=== PATIENT | female | born 1985 | race American Indian/Alaskan Native ===

== ENCOUNTER 2019-01-06 02:45 | Emergency (ER) | payer OTHER, MEDICAID, SELFPAY ==
[2019-01-06 02:49] VITALS: BP 118/95; PULSE 67; RESP 20; TEMP 36.4; O2SAT 97; BMI 48.5
[2019-01-06 03:28] VITALS: PULSE 67; RESP 20; TEMP 36.4; O2SAT 97
[2019-01-06 04:01] LABS: RBC Urine None Seen (0-5/HPF)
[2019-01-06 04:09] LABS: Add Manual Diff / Slide Review NO; Basophils Absolute Auto 0 /uL (0-100); Basophils Percent Auto 0.6 % (0-2); Eosinophils Absolute Auto 200 /uL (0-450); Eosinophils Percent Auto 2.3 % (2-4); Hematocrit 38.3 % (36-46); Hemoglobin 13.3 g/dL (12.0-16.0); Lymphocytes Absolute Auto 1600 /uL (1100-4500); Lymphocytes Percent Auto 22.1 % (25-40); Mean Corpuscular HGB Conc 34.6 % (30-36); Mean Corpuscular Hemoglobin 29.5 PG (26-34); Mean Corpuscular Volume 85.2 fL (80-100); Monocytes Absolute Auto 400 /uL (0-900); Monocytes Percent Auto 4.8 % (3-14); Neutrophils Absolute Auto 5200 /uL (1500-7000); Neutrophils Percent Auto 70.2 % (50-75); Platelet Count 234 X10^3/uL (150-400); Red Cell Distribution Width 12.8 % (11.6-14.8); White Blood Cell Count 7.5 X10^3/uL (4.5-11.0)
[2019-01-06 04:12] LABS: Prothrombin Time 11.1 SECONDS (10.1-12.7)
[2019-01-06 04:14] LABS: PTT Partial Thromboplastin Tim 34 SECONDS (26.4-36.2)
[2019-01-06 04:15] LABS: Bacteria Urine Few (2-10); Culture Indicated Urine Cult Not Indicated; Ictotest Urine Negative (Negative); Squamous Epithelial Cell Urine 5-10 /HPF (0-5/HPF); WBC Urine 1-5/HPF (0-5/HPF)
--- NOTE | 2019-01-06 04:15 | ED.ABDPAIN ---
HPI - Abdominal Pain General Chief Complaint: Abdominal Pain Stated Complaint: Upper abdominal pain/Back pain Time Seen by Provider: 01/06/19 03:40 Source: patient Mode of arrival: Ambulatory Limitations: no limitations History of Present Illness HPI narrative: This is a 33-year-old female comes in with complaint of upper abdominal pain that radiates towards her back. Patient states it only seems to happen when she is asleep and wakes her up from sleep. Sort of epigastric comes towards the back. Patient states that she has not any fevers. She did have nausea vomiting tonight. With other episodes she has not. She has had a couple episodes over the last several weeks. She has not had any changes with bowel movements. She has not had any frequency urgency or dysuria. No issues with vaginal discharge or bleeding. She has not had any fevers. No chest pain or shortness of breath. She is 4 months , she is breast feeding. She denies any other medical issues. No prior surgeries. No tobacco, denies alcohol, occasional marijuana. Related Data Previous Rx's Medication Instructions Recorded nitrofurantoin monohyd/m-cryst 100 mg PO BID #10 cap 04/17/17 [Macrobid] Allergies Allergy/AdvReac Type Severity Reaction Status Date / Time diazepam [From VALIUM] AdvReac Unknown ITCHY Unverified 07/06/17 12:54 Review of Systems Review of Systems ROS Unobtainable: All systems reviewed & are unremarkable except as noted in HPI and below PFSH Social History Smoking Status: Former smoker Social History (Updated 01/06/19 @ 04:40 by Jill Angel DO) Smoking Status: Former smoker substance use type: marijuana Exam Narrative Exam Narrative: GENERAL: Alert and oriented x three, obese, well-appearing female in no acute distress. Patient was initially breast-feeding in the room. HEENT: Head normocephalic, atraumatic, EOMI, pupils reactive, face symmetric, moist mucous membranes NECK: Supple, full range of motion CARDIOVASCULAR: Regular rate and rhythm without murmurs, rubs or gallops. RESPIRATORY: Breath sounds equal bilaterally, no wheezes rales or rhonchi. ABDOMEN: Soft, nontender. Normoactive bowel sounds all 4 quadrants. No guarding or rebound, rigidity, no mass : No CVA tenderness EXTREMITIES: Normal range of motion, no clubbing or edema. Neurovascularly intact NEUROLOGICAL: Cranial nerves II through XII grossly intact. Moving all extremities SKIN: Warm, dry, no petechiae, no rashes or lesions. Initial Vital Signs Initial Vital Signs: Vital Signs Temperature 97.6 F 01/06/19 02:49 Pulse Rate 67 01/06/19 02:49 Respiratory Rate 20 01/06/19 02:49 Blood Pressure 118/95 H 01/06/19 02:49 Pulse Oximetry 97 01/06/19 02:49 Course Orders Ordered: ED Orders 01/06/19 03:15 Ictotest Urine Stat Urine Microscopic Stat 01/06/19 04:00 Complete Blood Count AUTO DIFF Stat Comprehensive Metabolic Panel Stat Lipase Stat Partial Thromboplastin Time Stat Prothrombin Time INR Stat 01/06/19 04:28 US abdomen complete Stat Vital Signs Vital signs: Vital Signs - 8 hr 01/06/19 02:49 01/06/19 03:28 01/06/19 05:24 Temperature 97.6 F 97.6 F Pulse Rate 67 67 63 Respiratory Rate 20 20 16 Blood Pressure 118/95 H 119/84 Pulse Oximetry 97 97 97 MDM - Abdominal Pain Lab Data Attestation: I reviewed the patient's lab results. Result diagrams: 01/06/19 04:00 01/06/19 04:00 Labs: Lab Results 01/06/19 01/06/19 01/06/19 Range/Units 03:15 04:00 04:00 WBC 7.5 (4.5-11.0) X10^3/uL RBC 4.50 (4.0-5.2) X10^6/uL Hgb 13.3 (12.0-16.0) g/dL Hct 38.3 (36-46) % MCV 85.2 (80-100) fL MCH 29.5 (26-34) PG MCHC 34.6 (30-36) % RDW 12.8 (11.6-14.8) % Plt Count 234 (150-400) X10^3/uL Neut % (Auto) 70.2 (50-75) % Lymph % (Auto) 22.1 L (25-40) % [place] % (Auto) 4.8 (3-14) % Eos % (Auto) 2.3 (2-4) % Baso % (Auto) 0.6 (0-2) % Neut # (Auto) 5200 (9291-1905) /uL Lymph # (Auto) 1600 (7966-0973) /uL [place] # (Auto) 400 (0-900) /uL Eos # (Auto) 200 (0-450) /uL Baso # (Auto) 0 (0-100) /uL PT 11.1 (10.1-12.7) SECONDS INR 1.0 (0.9-1.3) APTT 34 (26.4-36.2) SECONDS Sodium (137-145) mmol/L Potassium (3.4-5.1) mmol/L Chloride (98-107) mmol/L Carbon Dioxide (22-32) mmol/L BUN (7-17) mg/dL Creatinine (0.52-1.04) mg/dL Estimated GFR (>60) mL/min BUN/Creatinine Ratio (6-22) Glucose (70-100) mg/dL Calcium (8.4-10.2) mg/dL Total Bilirubin (0.2-1.3) mg/dL AST (14-36) IU/L ALT (9-52) IU/L Alkaline Phosphatase (38-126) U/L Total Protein (6.3-8.2) g/dL Albumin (3.5-5.0) g/dL Globulin (1.7-4.1) g/dL Albumin/Globulin Ratio (1.0-2.8) Lipase (23-300) U/L Urine Ictotest Negative (Negative) Urine RBC None seen (0-5/HPF) Urine WBC 1-5/hpf (0-5/HPF) Ur Squamous Epith Cells 5-10 /hpf H (0-5/HPF) Urine Bacteria Few (2-10) H (None) Ur Culture Indicated? Cult not indicated 01/06/19 Range/Units 04:00 WBC (4.5-11.0) X10^3/uL RBC (4.0-5.2) X10^6/uL Hgb (12.0-16.0) g/dL Hct (36-46) % MCV (80-100) fL MCH (26-34) PG MCHC (30-36) % RDW (11.6-14.8) % Plt Count (150-400) X10^3/uL Neut % (Auto) (50-75) % Lymph % (Auto) (25-40) % [place] % (Auto) (3-14) % Eos % (Auto) (2-4) % Baso % (Auto) (0-2) % Neut # (Auto) (5871-9215) /uL Lymph # (Auto) (9639-6549) /uL [place] # (Auto) (0-900) /uL Eos # (Auto) (0-450) /uL Baso # (Auto) (0-100) /uL PT (10.1-12.7) SECONDS INR (0.9-1.3) APTT (26.4-36.2) SECONDS Sodium 140 (137-145) mmol/L Potassium 4.2 (3.4-5.1) mmol/L Chloride 102 (98-107) mmol/L Carbon Dioxide 31 (22-32) mmol/L BUN 16 (7-17) mg/dL Creatinine 0.60 (0.52-1.04) mg/dL Estimated GFR > 60.0 (>60) mL/min BUN/Creatinine Ratio 26.7 H (6-22) Glucose 112 H (70-100) mg/dL Calcium 8.6 (8.4-10.2) mg/dL Total Bilirubin 0.3 (0.2-1.3) mg/dL AST 31 (14-36) IU/L ALT 25 (9-52) IU/L Alkaline Phosphatase 108 (38-126) U/L Total Protein 7.3 (6.3-8.2) g/dL Albumin 4.2 (3.5-5.0) g/dL Globulin 3.1 (1.7-4.1) g/dL Albumin/Globulin Ratio 1.4 (1.0-2.8) Lipase 108 (23-300) U/L Urine Ictotest (Negative) Urine RBC (0-5/HPF) Urine WBC (0-5/HPF) Ur Squamous Epith Cells (0-5/HPF) Urine Bacteria (None) Ur Culture Indicated? Point of care testing: Point of Care Testing Test Results Negative Urine Dip Bedside Urine Glucose Negative Bedside Urine Bilirubin + 1 Bedside Urine Ketone +/- 5 Urine Specific Fonda 1.025 Bedside Urine Occult Blood - Negative Bedside Urine pH 5.5 Bedside Urine Protein +/- 15 Bedside Urine Urobilinogen 1+ 2mg Bedside Urine Nitrite - Negative Bedside Urine Leukocytes +/- 15 Esterase Imaging Data US - abdomen: Radiologist's impression: prelim-gallstones, no obstructing stones. no CBD duct dilation, no thickening. MDM Narrative Medical decision making narrative: Patient has gallstones, she is not currently in pain, no infectious changes. Lab work has a normal range. Urine has some leukocyte esterase but appears to also have squamous. Pain is epigastric and do not feel that her urine is likely source. Discussed with patient probably the gallstones are the cause of her pain. It is intermittent and resolved at this point. Give her referral for General surgery if she would like to talk to them about possible removal. Also discussed signs and symptoms to watch for reasons to return. Discharge Plan Departure Patient Disposition: Home Clinical Impression: Abdominal pain, Cholelithiasis Discharge Date/Time: 01/06/19 05:24 Instructions: DI for Abdominal Pain-Adult Activity Restrictions/Additional Instructions: Follow-up with primary care in the next week for recheck. May also follow up with General surgery, her ultrasound shows gallstones this could be causing your pain and you may benefit from having your gallbladder removed at some point. You may take ibuprofen and/or Tylenol as needed for pain you may take ibuprofen up to 800 mg every 8 hours or Tylenol up to a 1000 mg every 8 hours as needed. These medications are appropriate while breast feeding. Return to the emergency department for fevers greater than 100.4 F, rapidly worsening abdominal pain, persistent vomiting, black or bloody stools, passing out or other new or concerning symptoms. Prescriptions: No Action nitrofurantoin monohyd/m-cryst [Macrobid] 100 MG capsule 100 mg PO BID Qty: 10 RF: 0 Referrals: Bryson Stafford MD [Physician] -
[2019-01-06 04:16] LABS: Alanine Aminotransferase 25 IU/L (9-52); Albumin 4.2 g/dL (3.5-5.0); Albumin Globulin Ratio 1.4 (1.0-2.8); Alkaline Phosphatase 108 U/L (38-126); Aspartate Aminotransferase 31 IU/L (14-36); BUN Creatinine Ratio 26.7 (6-22); Bilirubin Total 0.3 mg/dL (0.2-1.3); Blood Urea Nitrogen 16 mg/dL (7-17); Calcium 8.6 mg/dL (8.4-10.2); Carbon Dioxide 31 mmol/L (22-32); Chloride 102 mmol/L (98-107); Estimated Glomerular Filt Rate > 60.0 mL/min (>60); Globulin 3.1 g/dL (1.7-4.1); Glucose 112 mg/dL (70-100); HEMOLYSIS < 15 (0-50); Lipase 108 U/L (23-300); Potassium 4.2 mmol/L (3.4-5.1); Sodium 140 mmol/L (137-145); Total Protein 7.3 g/dL (6.3-8.2)
--- NOTE | 2019-01-06 04:28 | DI.US.S_ITS ---
PROCEDURE: US ABDOMEN COMPLETE INDICATIONS: PAIN 6 WEEKS POST TECHNIQUE: Real-time scanning was performed of the abdominal and retroperitoneal organs, with image documentation. COMPARISON: [facility], US, ABDOMEN COMPLETE, 07/18/2007, 10:34. [facility], CT, KIDNEY/ URETER/BLADDER, 11/17/2007, 13:14. FINDINGS: Liver: The liver demonstrates normal size. The liver demonstrates generalized mildly increased echogenicity. This decreases ultrasound sensitivity for detection of hepatic masses. Gallbladder: Numerous mobile gallstones are seen, measuring approximately 5 mm. The gallbladder wall is not thickened, measuring 3 mm or less. No specific pericholecystic fluid is seen. The sonographic Chase sign is negative. Biliary ducts: Intrahepatic bile ducts are non-dilated. Extrahepatic bile duct caliber measures 8 mm. Normal is 6-7 mm or less in diameter, or 10 mm or less post-cholecystectomy. Pancreas: Visualized portions of the pancreas are sonographically normal. Spleen: Spleen is mildly enlarged measuring 13.2 cm. Kidneys: Kidneys are normal in size and echotexture. Right kidney measures 11.5 cm long; left kidney measures 12 cm long. No hydronephrosis or nephrolithiasis. No solid masses. Aorta: Visualized aorta is normal in caliber at less than 3 cm. Iliacs: Not seen, obscured by overlying bowel gas. IVC: Intrahepatic inferior vena cava is patent. Miscellaneous: No free abdominal fluid. IMPRESSION: Mobile gallstones are seen, without additional sonographic signs of ascites. Mild biliary dilatation is seen, the common bile duct measuring up to 8 mm. As clinically appropriate, an MRCP could be considered for further evaluation (assuming that there is no contraindication to MRI). The liver demonstrates mildly increased echogenicity. This finding is nonspecific, yet it is most commonly attributed to fatty infiltration. Mild splenomegaly. Note: No significant discrepancy from the preliminary report. Dictated by: Robe Ga M.D. on 01/06/2019 at 6:55 Approved by: Robe Ga M.D. on 01/06/2019 at 6:58
[2019-01-06 05:24] VITALS: BP 119/84; PULSE 63; RESP 16; O2SAT 97
== END 2019-01-06 05:24 | disposition home or self-care (01) ==
PROVIDERS: Emergency Provider Emergency Medicine
DX: R10.9 Unspecified abdominal pain (principal); K80.20 Calculus of gallbladder without cholecystitis without obstruction
CPT/HCPCS: 36415; 76700; 80053; 81003; 81015; 81025; 83690; 85025; 85610; 85730; 99282; 99284

== ENCOUNTER 2019-10-04 10:14 | Observation (INO) | payer OTHER, MEDICAID, SELFPAY ==
[2019-10-04] VITALS (17 sets, daily range): BP systolic 114–168; BP diastolic 69–90; PULSE 55–71; RESP 11–24; TEMP 36.1–36.5; O2SAT 95–100; BMI 48.0
--- NOTE | 2019-10-04 | PATH_ITS ---
[facility] Accession Number: [id number] . 01 Material submitted: . gallbladder - GALLBLADDER AND CONTENTS . 02 Diagnosis: Gallbladder and Contents, Cholecystectomy: Chronic cholecytitis with cholelithiasis. Negative for dysplasia and malignancy. [facility] 10/08/2019 1329 Local . 02 Electronically signed: . Renetta Corona MD, Pathologist NPI- [id number] . 01 Gross description: . Received in formalin, labeled with patient identification and gallbladder / contents, and consists of an intact gallbladder measuring 7.3 cm in length and 3.0 cm in diameter. The staple at the cystic duct margin is removed, and the tissue underneath is inked blue. The cystic duct is 0.4 cm in diameter. The serosa is pink-guan and dull. The hepatic surface is yellow-guan, shaggy, and focally cauterized. Opening the specimen reveals yellow-guan with green tinted, velvety mucosa and multiple yellow-guan and irregular shaped calculi measuring 6.5 x 5.5 x 0.6 cm in aggregate. The serosa is pink-guan and dull with focally white-guan exudate. Multiple calculi are present at the neck area. The wall thickness is up to 0.3 cm. There is a 0.7 x 0.5 x 0.3 cm lymph node candidate. [employer] sections are submitted in three cassettes. . SUMMARY OF SECTIONS: . A1 - cystic duct margin, shave, one piece. A2 - product representative sections of gallbladder, three pieces. A3 - one intact lymph node candidate, one piece. ([id number]) /LISA 10/08/2019 1421 Local . 02 Pathologist provided ICD-10: K80.60 . 02 CPT . 593401 Performed at: [address] [facility] [address] [place] [address], [place], [place] [id number] MD Richard Saravia MD Phone: [phone] Performed at: 02 [facility] [place] [address] [address] [place], [place] [id number] MD Renetta Corona MD Phone: [phone]
--- NOTE | 2019-10-04 | DI.RAD.S_ITS ---
PROCEDURE: XR CHOLANGIOGRAM OPERATIVE INDICATIONS: CHOLANGIOGRAM COMPARISON: None. FINDINGS: Biliary ducts: The surgeon injected contrast into the biliary ducts after cannulation of the cystic duct stump. Visualized intra- and extrahepatic bile ducts are normal in caliber, without strictures. No intraluminal filling defects to suggest retained ductal stones or sludge. No evidence for iatrogenic ductal injury. Duodenum: Contrast flows promptly through the sphincter of Oddi into the duodenum, which appears normal in caliber. IMPRESSION: Intraoperative cholangiogram shows post cholecystectomy changes and patent common bile duct. Dictated by: Scott Jc M.D. on 10/04/2019 at 21:11 Approved by: Scott Jc M.D. on 10/04/2019 at 21:11
--- NOTE | 2019-10-04 10:25 | DI.US.S_ITS ---
PROCEDURE: US ABDOMEN LIMITED INDICATIONS: SEVERE EPIGASTRIC PAIN, HISTORY OF GALLSTONES TECHNIQUE: Real-time focused scanning was performed of the abdomen, with image documentation. COMPARISON: [facility], US, US ABDOMEN COMPLETE, 01/06/2019, 5:02. FINDINGS: The liver is normal in size and homogeneous in echotexture except for mild to moderate fatty infiltration throughout the liver. The gallbladder contains numerous small internal stones which currently do not appear obstructed. The gallbladder wall is normal in thickness at 1.7 mm. Note is made of prominence of the bile duct at the pancreatic level, an 8 mm. The pancreas itself could not be seen due to bowel gas. IMPRESSION: Multiple small stones are present within the gallbladder lumen and the common duct is mildly dilated at 8 mm to the degree that a distal common duct stone could be present. Depending on clinical status followup by MR cholangiography may become necessary. Dictated by: Gerardo Bauer M.D. on 10/04/2019 at 11:53 Approved by: Gerardo Bauer M.D. on 10/04/2019 at 11:56
[2019-10-04] MEDS: SODIUM CHLORIDE 0.9% 1,000 ML 1000 ML IV (10:33)
[2019-10-04] MEDS: PANTOPRAZOLE 40 MG VIAL IV (10:33)
[2019-10-04 10:58] LABS: Add Manual Diff / Slide Review NO; Basophils Absolute Auto 100 /uL (0-100); Basophils Percent Auto 0.7 % (0-2); Eosinophils Absolute Auto 100 /uL (0-450); Eosinophils Percent Auto 1.5 % (2-4); Hematocrit 40.5 % (36-46); Hemoglobin 13.9 g/dL (12.0-16.0); Lymphocytes Absolute Auto 1900 /uL (1100-4500); Lymphocytes Percent Auto 19.1 % (25-40); Mean Corpuscular HGB Conc 34.3 % (30-36); Mean Corpuscular Hemoglobin 28.5 PG (26-34); Mean Corpuscular Volume 83.2 fL (80-100); Monocytes Absolute Auto 500 /uL (0-900); Monocytes Percent Auto 4.8 % (3-14); Neutrophils Absolute Auto 7300 /uL (1500-7000); Neutrophils Percent Auto 73.9 % (50-75); Platelet Count 296 X10^3/uL (150-400); Red Blood Cell Count 4.87 X10^6/uL (4.0-5.2); Red Cell Distribution Width 13.8 % (11.6-14.8); White Blood Cell Count 9.9 X10^3/uL (4.5-11.0)
[2019-10-04 11:08] LABS: Appearance Urine UA CLEAR; Bilirubin Urine UA 1+ (NEGATIVE); Color Urine UA YELLOW; Glucose Urine UA NEGATIVE (Negative); Ketones Urine UA NEGATIVE (NEGATIVE); Leukocyte Esterase Urine UA NEGATIVE (NEGATIVE); Nitrite Urine UA NEGATIVE (Negative); Occult Blood Urine UA TRACE-LYSED (Negative); Protein Urine UA TRACE (Negative); Specific Gravity Urine UA >=1.030 (1.000-1.035)
[2019-10-04 11:13] LABS: Alanine Aminotransferase 32 IU/L (<35); Albumin 4.6 g/dL (3.5-5.0); Albumin Globulin Ratio 1.4 (1.0-2.8); Alkaline Phosphatase 144 U/L (38-126); Aspartate Aminotransferase 76 IU/L (14-36); Bilirubin Total 1.2 mg/dL (0.2-1.3); Blood Urea Nitrogen 13 mg/dL (7-17); Calcium 9.3 mg/dL (8.4-10.2); Carbon Dioxide 25 mmol/L (22-32); Chloride 106 mmol/L (98-107); Estimated Glomerular Filt Rate > 60.0 mL/min (>60); Globulin 3.2 g/dL (1.7-4.1); Glucose 138 mg/dL (70-100); HEMOLYSIS < 15 (0-50); Lipase 122 U/L (23-300); Potassium 3.9 mmol/L (3.4-5.1); Sodium 139 mmol/L (137-145); Total Protein 7.8 g/dL (6.3-8.2)
[2019-10-04 11:29] LABS: Bacteria Urine Moderate (10-30); Culture Indicated Urine Cult Not Indicated; Ictotest Urine Positive (Negative); Mucus Urine 1+ (Negative); RBC Urine 1-5/HPF (0-5/HPF); Squamous Epithelial Cell Urine 5-10 /HPF (0-5/HPF); WBC Urine 0-1/HPF (0-5/HPF)
--- NOTE | 2019-10-04 11:51 | ED.ABDPAIN ---
HPI - Abdominal Pain <Jerel Henao DO - Last Filed: 10/04/19 12:34> General Source: patient Mode of arrival: Ambulatory Limitations: no limitations History of Present Illness HPI narrative: 33F former smoker with known history of gallstones presents with a day and a half of severe epigastric pain, nausea and decreased appetite. She states that her pain is worse with motion and it is unclear if it is made worse by eating because she has not eaten since last night. She denies any fever or chills. She denies any change in bowel or bladder habits. MD complaint: abdominal pain Onset (ago): day(s) Pain Consistency: constant Location: epigastric Severity: moderate Quality: cramping and aching Radiation: none Relieving factors: nothing Associated symptoms: nausea Related Data Previous Rx's Medication Instructions Recorded nitrofurantoin monohyd/m-cryst 100 mg PO BID #10 cap 04/17/17 [Macrobid] Allergies Allergy/AdvReac Type Severity Reaction Status Date / Time diazepam [From VALIUM] AdvReac Unknown ITCHY Verified 10/04/19 12:22 Review of Systems <Jerelmalathi Henao DO - Last Filed: 10/04/19 12:34> Constitutional Constitutional: Denies chills, Denies fatigue, Denies fever(s), Denies frequent falls, Denies lethargy and Denies weakness Eyes Eyes: Denies change in vision, Denies eye discharge, Denies irritation and Denies loss of vision ENT Ears, Nose, Mouth, and Throat: Denies change in voice, Denies dizziness, Denies neck pain, Denies sore throat and Denies throat swelling Cardiovascular Cardiovascular: Denies chest pain, Denies irregular heart rhythm, Denies lightheadedness, Denies palpitations, Denies dyspnea, Denies dyspnea on exertion and Denies orthopnea Respiratory Respiratory: Denies cough, Denies dyspnea, Denies dyspnea on exertion and Denies wheezing Gastrointestinal Gastrointestinal: Reports abdominal pain, Denies change in bowel habits, Denies diarrhea, Reports nausea and Denies vomiting Musculoskeletal Musculoskeletal: Denies neck pain and Denies numbness Integumentary/Breasts Skin/Breast: Denies pruritus, Denies erythema, Denies rash and Denies wounds Neurologic Neurologic: Denies behavioral changes, Denies confusion, Denies dizziness, Denies frequent falls, Denies loss of vision, Denies numbness and Denies weakness Psychiatric Psychiatric: Denies anxiety, Denies behavioral changes, Denies confusion, Denies depression, Denies homicidal ideation and Denies suicidal ideation Endocrine Endocrine: Denies fatigue, Denies flushing and Denies palpitations Hematologic/Lymphatic Hematologic/Lymphatic: Denies easy bruising Allergic/Immunologic Allergic/Immunologic: Denies urticaria, Denies throat swelling and Denies wheezing Patient History <Jerel Henao DO - Last Filed: 10/04/19 12:34> Social History Smoking Status: Former smoker substance use type: marijuana Smoking Status: Former smoker alcohol intake frequency: 0-2 drinks per day Substance Use Type: marijuana Exam <Jerel Henao DO - Last Filed: 10/04/19 12:34> Narrative Exam Narrative: GENERAL: [33] year old patient appears stated age. Well-nourished, well-developed patient, in mild distress. HEAD: Atraumatic. Normocephalic. EYES: Pupils equal round and reactive. Extraocular motions intact. No scleral icterus. No injection or drainage. ENT: Nose without bleeding, purulent drainage. Throat without erythema, tonsillar hypertrophy or exudate. Airway patent. NECK: Trachea midline. Non tender CARDIOVASCULAR: Regular rate and rhythm without murmurs, gallops, or rubs. RESPIRATORY: Clear to auscultation. Breath sounds equal bilaterally. No wheezes, rales, or rhonchi. GASTROINTESTINAL: Abdomen soft, tender in the epigastrium, less so in the right upper quadrant, nondistended. EXTREMITIES: No edema or joint tenderness. BACK: Nontender without deformity or crepitance. No flank tenderness. NEURO: AOx3. SKIN: No rash or erythema of visible areas Initial Vital Signs Initial Vital Signs: Vital Signs Pulse Rate 58 L 10/04/19 10:25 Blood Pressure 114/72 10/04/19 10:25 Pulse Oximetry 99 10/04/19 10:25 <Jose Geronimo MD - Last Filed: 10/04/19 13:04> Initial Vital Signs Initial Vital Signs: Vital Signs Pulse Rate 58 L 10/04/19 10:25 Blood Pressure 114/72 10/04/19 10:25 Pulse Oximetry 99 10/04/19 10:25 Course <Jerel Henao DO - Last Filed: 10/04/19 12:34> Orders Ordered: ED Orders 10/04/19 10:25 US abdomen limited Stat 10/04/19 10:31 Ictotest Urine Stat Urinalysis and Microscopic Stat 10/04/19 10:45 Complete Blood Count AUTO DIFF Stat Comprehensive Metabolic Panel Stat Lipase Stat Cefotetan Disodium/Dextrose (Cefotan) 1 gm in 50 mls @ 100 mls/hr IV NOW ONE Stop: 10/04/19 13:04 Last Admin: 10/04/19 12:49 Dose: 100 mls/hr Documented by: GLO Discontinued Medications Sodium Chloride (Normal Saline 0.9%) 1,000 mls @ 1,000 mls/hr IV BOLUS ONE Stop: 10/04/19 11:23 Last Infusion: 10/04/19 12:18 Dose: 0 mls/hr Documented by: Admin: 10/04/19 10:33 Dose: 1,000 mls/hr Documented by: SANJIV Pantoprazole Sodium (Protonix) 40 mg IV NOW ONE Stop: 10/04/19 10:25 Last Admin: 10/04/19 10:33 Dose: 40 mg Documented by: SANJIV Consultations Consultation #1: Upon receipt of ultrasound I contacted on-call surgery, Dr. Geronimo, he recommends admission and surgery Vital Signs Vital signs: Vital Signs - 8 hr 10/04/19 10:25 10/04/19 10:26 10/04/19 11:47 Temperature 97.7 F Pulse Rate 58 L 58 L 71 Respiratory Rate 16 Blood Pressure 114/72 114/72 115/78 Pulse Oximetry 99 99 100 <Jose Geronimo MD - Last Filed: 10/04/19 13:04> Orders Ordered: ED Orders 10/04/19 10:25 US abdomen limited Stat 10/04/19 10:31 Ictotest Urine Stat Urinalysis and Microscopic Stat 10/04/19 10:45 Complete Blood Count AUTO DIFF Stat Comprehensive Metabolic Panel Stat Lipase Stat Cefotetan Disodium/Dextrose (Cefotan) 1 gm in 50 mls @ 100 mls/hr IV NOW ONE Stop: 10/04/19 13:04 Last Admin: 10/04/19 12:49 Dose: 100 mls/hr Documented by: GLO Discontinued Medications Sodium Chloride (Normal Saline 0.9%) 1,000 mls @ 1,000 mls/hr IV BOLUS ONE Stop: 10/04/19 11:23 Last Infusion: 10/04/19 12:18 Dose: 0 mls/hr Documented by: Admin: 10/04/19 10:33 Dose: 1,000 mls/hr Documented by: SANJIV Pantoprazole Sodium (Protonix) 40 mg IV NOW ONE Stop: 10/04/19 10:25 Last Admin: 10/04/19 10:33 Dose: 40 mg Documented by: SANJIV Vital Signs Vital signs: Vital Signs - 8 hr 10/04/19 10:25 10/04/19 10:26 10/04/19 11:47 Temperature 97.7 F Pulse Rate 58 L 58 L 71 Respiratory Rate 16 Blood Pressure 114/72 114/72 115/78 Pulse Oximetry 99 99 100 MDM - Abdominal Pain <Jerel Henao DO - Last Filed: 10/04/19 12:34> Lab Data Result diagrams: 10/04/19 10:45 10/04/19 10:45 Labs: Lab Results 10/04/19 10/04/19 10/04/19 Range/Units 10:31 10:45 10:45 WBC 9.9 (4.5-11.0) X10^3/uL RBC 4.87 (4.0-5.2) X10^6/uL Hgb 13.9 (12.0-16.0) g/dL Hct 40.5 (36-46) % MCV 83.2 (80-100) fL MCH 28.5 (26-34) PG MCHC 34.3 (30-36) % RDW 13.8 (11.6-14.8) % Plt Count 296 (150-400) X10^3/uL Neut % (Auto) 73.9 (50-75) % Lymph % (Auto) 19.1 L (25-40) % [place] % (Auto) 4.8 (3-14) % Eos % (Auto) 1.5 L (2-4) % Baso % (Auto) 0.7 (0-2) % Neut # (Auto) 7300 H (3235-3196) /uL Lymph # (Auto) 1900 (1837-0720) /uL [place] # (Auto) 500 (0-900) /uL Eos # (Auto) 100 (0-450) /uL Baso # (Auto) 100 (0-100) /uL Sodium 139 (137-145) mmol/L Potassium 3.9 (3.4-5.1) mmol/L Chloride 106 (98-107) mmol/L Carbon Dioxide 25 (22-32) mmol/L BUN 13 (7-17) mg/dL Creatinine 0.65 (0.52-1.04) mg/dL Estimated GFR > 60.0 (>60) mL/min BUN/Creatinine Ratio 20.0 (6-22) Glucose 138 H (70-100) mg/dL Calcium 9.3 (8.4-10.2) mg/dL Total Bilirubin 1.2 (0.2-1.3) mg/dL AST 76 H (14-36) IU/L ALT 32 (<35) IU/L Alkaline Phosphatase 144 H (38-126) U/L Total Protein 7.8 (6.3-8.2) g/dL Albumin 4.6 (3.5-5.0) g/dL Globulin 3.2 (1.7-4.1) g/dL Albumin/Globulin Ratio 1.4 (1.0-2.8) Lipase 122 (23-300) U/L Urine Color Yellow Urine Appearance Clear Urine pH 5.0 (4.5-8.0) Ur Specific [place] >=1.030 H (1.000-1.035) Urine Protein Trace H (Negative) Urine Glucose (UA) Negative (Negative) g/dL Urine Ketones Negative (NEGATIVE) Urine Occult Blood Trace-lysed (Negative) Urine Nitrate Negative (Negative) Urine Bilirubin 1+ H (NEGATIVE) Ur Bilirubin Confirm Positive H (Negative) Urine Urobilinogen 1.0 (0.2) E.U./dL Ur Leukocyte Esterase Negative (NEGATIVE) Urine RBC 1-5/hpf (0-5/HPF) Urine WBC 0-1/hpf (0-5/HPF) Ur Squamous Epith Cells 5-10 /hpf H (0-5/HPF) Urine Bacteria Moderate (10-30) H (None) Urine Mucus 1+ H (Negative) Ur Culture Indicated? Cult not indicated Point of care testing: Point of Care Testing Test Results Negative Urine Dip Bedside Urine Glucose Negative Bedside Urine Bilirubin + 1 Bedside Urine Ketone - Negative Urine Specific [place] 1.030 Bedside Urine Occult Blood - Negative Bedside Urine pH 6.0 Bedside Urine Protein +/- 15 Bedside Urine Urobilinogen +/- 1mg Bedside Urine Nitrite - Negative Bedside Urine Leukocytes + 70 Esterase Imaging Data US - abdomen: Radiologist's Impression: [address] [address] Ultrasound Report Signed Patient: Phill Eller CMR#: [id number] : 1985Acct:[id number] Age/Sex: 33 / FDate of Service: 10/04/19 Loc: ED Accession Number: [id number] Procedure: US abdomen limited Ordering Provider: Jerel Henao D.O. PROCEDURE: US ABDOMEN LIMITED INDICATIONS: SEVERE EPIGASTRIC PAIN, HISTORY OF GALLSTONES TECHNIQUE: Real-time focused scanning was performed of the abdomen, with image documentation. COMPARISON: , US, US ABDOMEN COMPLETE, 01/06/2019, 5:02. FINDINGS: The liver is normal in size and homogeneous in echotexture except for mild to moderate fatty infiltration throughout the liver. The gallbladder contains numerous small internal stones which currently do not appear obstructed. The gallbladder wall is normal in thickness at 1.7 mm. Note is made of prominence of the bile duct at the pancreatic level, an 8 mm. The pancreas itself could not be seen due to bowel gas. IMPRESSION: Multiple small stones are present within the gallbladder lumen and the common duct is mildly dilated at 8 mm to the degree that a distal common duct stone could be present. Depending on clinical status followup by MR cholangiography may become necessary. Dictated by: Gerardo Bauer M.D. on 10/04/2019 at 11:53 Approved by: Gerardo Bauer M.D. on 10/04/2019 at 11:56 <Jose Geronimo MD - Last Filed: 10/04/19 13:04> Lab Data Labs: Lab Results 10/04/19 10/04/19 10/04/19 Range/Units 10:31 10:45 10:45 WBC 9.9 (4.5-11.0) X10^3/uL RBC 4.87 (4.0-5.2) X10^6/uL Hgb 13.9 (12.0-16.0) g/dL Hct 40.5 (36-46) % MCV 83.2 (80-100) fL MCH 28.5 (26-34) PG MCHC 34.3 (30-36) % RDW 13.8 (11.6-14.8) % Plt Count 296 (150-400) X10^3/uL Neut % (Auto) 73.9 (50-75) % Lymph % (Auto) 19.1 L (25-40) % [place] % (Auto) 4.8 (3-14) % Eos % (Auto) 1.5 L (2-4) % Baso % (Auto) 0.7 (0-2) % Neut # (Auto) 7300 H (0728-7809) /uL Lymph # (Auto) 1900 (8890-5756) /uL [place] # (Auto) 500 (0-900) /uL Eos # (Auto) 100 (0-450) /uL Baso # (Auto) 100 (0-100) /uL Sodium 139 (137-145) mmol/L Potassium 3.9 (3.4-5.1) mmol/L Chloride 106 (98-107) mmol/L Carbon Dioxide 25 (22-32) mmol/L BUN 13 (7-17) mg/dL Creatinine 0.65 (0.52-1.04) mg/dL Estimated GFR > 60.0 (>60) mL/min BUN/Creatinine Ratio 20.0 (6-22) Glucose 138 H (70-100) mg/dL Calcium 9.3 (8.4-10.2) mg/dL Total Bilirubin 1.2 (0.2-1.3) mg/dL AST 76 H (14-36) IU/L ALT 32 (<35) IU/L Alkaline Phosphatase 144 H (38-126) U/L Total Protein 7.8 (6.3-8.2) g/dL Albumin 4.6 (3.5-5.0) g/dL Globulin 3.2 (1.7-4.1) g/dL Albumin/Globulin Ratio 1.4 (1.0-2.8) Lipase 122 (23-300) U/L Urine Color Yellow Urine Appearance Clear Urine pH 5.0 (4.5-8.0) Ur Specific [place] >=1.030 H (1.000-1.035) Urine Protein Trace H (Negative) Urine Glucose (UA) Negative (Negative) g/dL Urine Ketones Negative (NEGATIVE) Urine Occult Blood Trace-lysed (Negative) Urine Nitrate Negative (Negative) Urine Bilirubin 1+ H (NEGATIVE) Ur Bilirubin Confirm Positive H (Negative) Urine Urobilinogen 1.0 (0.2) E.U./dL Ur Leukocyte Esterase Negative (NEGATIVE) Urine RBC 1-5/hpf (0-5/HPF) Urine WBC 0-1/hpf (0-5/HPF) Ur Squamous Epith Cells 5-10 /hpf H (0-5/HPF) Urine Bacteria Moderate (10-30) H (None) Urine Mucus 1+ H (Negative) Ur Culture Indicated? Cult not indicated Point of care testing: Point of Care Testing Test Results Negative Urine Dip Bedside Urine Glucose Negative Bedside Urine Bilirubin + 1 Bedside Urine Ketone - Negative Urine Specific [place] 1.030 Bedside Urine Occult Blood - Negative Bedside Urine pH 6.0 Bedside Urine Protein +/- 15 Bedside Urine Urobilinogen +/- 1mg Bedside Urine Nitrite - Negative Bedside Urine Leukocytes + 70 Esterase Discharge Plan Departure Admit Date/Time: 10/04/19 12:35
[2019-10-04] MEDS: CEFOTETAN 1 GM/50 ML PIGGYBACK IV (12:49)
--- NOTE | 2019-10-04 13:06 | P.HP_ITS ---
History of Present Illness History of Present Illness Date Patient Seen: 10/04/19 Time Patient Seen: 13:06 Chief complaint: gallstones Narrative: The patient is a woman who developed abdominal pain this morning. She has been having this pain intermittently since December. It was a little more severe today and she came into the emergency room. It was accompanied by 2 episodes of vomiting. She has not had anything to eat or drink since before midnight. She has had no abdominal operations. The pain has some radiation into her back. Is difficult at this time for to put a number on it. Patient History Medical History (Updated 10/04/19 @ 13:09 by Jose Geronimo MD) Knee fracture (Acute) Family & Social History Family History Grandfather No problems noted. Grandmother No problems noted. Safety & Behavioral: Feels Safe in Current Yes Environment Been Physically Hurt or No Threatened By a Person Tobacco & Substance use: Smoking Status Former smoker alcohol intake frequency 0-2 drinks per day Substance Use Type marijuana Meds Home Medications and Allergies Home Medications Medication Instructions Recorded Confirmed Type nitrofurantoin monohyd/m-cryst 100 mg PO BID #10 cap 04/17/17 Rx [Macrobid] Allergies Allergy/AdvReac Type Severity Reaction Status Date / Time diazepam [From VALIUM] AdvReac Unknown ITCHY Verified 10/04/19 12:22 Review of Systems Review of Systems ROS: Yes All systems reviewed with the patient and are negative except as otherwise documented Exam Vital Signs (past 8 hours): - 10/04/19 10:25 10/04/19 10:26 10/04/19 11:47 Temperature 97.7 F Pulse Rate 58 L 58 L 71 Respiratory Rate 16 Blood Pressure 114/72 114/72 115/78 Pulse Oximetry 99 99 100 10/04/19 11:48 10/04/19 12:00 10/04/19 12:20 Temperature Pulse Rate 62 55 L 66 Respiratory Rate Blood Pressure 115/78 125/83 Pulse Oximetry 100 100 100 10/04/19 12:30 10/04/19 12:54 Temperature Pulse Rate 60 65 Respiratory Rate Blood Pressure 168/70 H Pulse Oximetry 100 100 Oxygen Delivery Method Room Air Narrative Exam Narrative: Pleasant woman in no distress at this time. Moves about her cart without difficulty. Patient is morbidly obese with a BMI of 48. Her eyes are nonicteric. Pupils equal round reactive to light. Conjunctiva pink. Ears without lesion. Nasal septum midline without polyps. Oral mucosa is pink moist no open lesions. Lips without splits. Teeth are intact. Neck is supple. No nodes in the neck or supraclavicular areas. Trachea is midline mobile. Thyroid is not enlarged. No masses in the neck or thyroid or felt. Her lungs are clear to auscultation without rales or rhonchi. Equal percussion. Heart regular rate and rhythm without murmur gallop. No bruit in the neck. Abdomen is protuberant soft. There are no palpable masses. No obvious hernias. Patient's liver and spleen are not palpably enlarged. Patient has scarring from a prior belly bu tton ring but the openings have sealed. Patient's skin is heavily tattooed but otherwise unremarkable. No open lesions appreciated. Patient is alert and oriented x3. Speech rate and content are appropriate. Affect is appropriate. Objective Imaging US - abdomen: My impression: Patient with a normal gallbladder wall and multiple small stones. Common bile duct may be slightly dilated. Radiologist's impression: Essentially the same Labs Result Diagrams: 10/04/19 10:45 10/04/19 10:45 Labs: Laboratory Results - last 24 hr 10/04/19 10/04/19 10/04/19 10:31 10:45 10:45 WBC 9.9 RBC 4.87 Hgb 13.9 Hct 40.5 MCV 83.2 MCH 28.5 MCHC 34.3 RDW 13.8 Plt Count 296 Neut % (Auto) 73.9 Lymph % (Auto) 19.1 L [place] % (Auto) 4.8 Eos % (Auto) 1.5 L Baso % (Auto) 0.7 Neut # (Auto) 7300 H Lymph # (Auto) 1900 [place] # (Auto) 500 Eos # (Auto) 100 Baso # (Auto) 100 Sodium 139 Potassium 3.9 Chloride 106 Carbon Dioxide 25 BUN 13 Creatinine 0.65 Estimated GFR > 60.0 BUN/Creatinine Ratio 20.0 Glucose 138 H Calcium 9.3 Total Bilirubin 1.2 AST 76 H ALT 32 Alkaline Phosphatase 144 H Total Protein 7.8 Albumin 4.6 Globulin 3.2 Albumin/Globulin Ratio 1.4 Lipase 122 Urine Color Yellow Urine Appearance Clear Urine pH 5.0 Ur Specific [place] >=1.030 H Urine Protein Trace H Urine Glucose (UA) Negative Urine Ketones Negative Urine Occult Blood Trace-lysed Urine Nitrate Negative Urine Bilirubin 1+ H Ur Bilirubin Confirm Positive H Urine Urobilinogen 1.0 Ur Leukocyte Esterase Negative Urine RBC 1-5/hpf Urine WBC 0-1/hpf Ur Squamous Epith Cells 5-10 /hpf H Urine Bacteria Moderate (10-30) H Urine Mucus 1+ H Ur Culture Indicated? Cult not indicated Assessment & Plan Assessment & Plan narrative: Morbidly obese patient with gallstones, and elevation of her alkaline phosphatase, a bilirubin near the upper limit of normal but bili Norris spilling into her urine suggesting the possibility of a floating stone or 1 that has passed. Pain and labs are consistent with gallbladder disease. I have discussed removal of her gallbladder laparoscopically with her. Risks of bleeding, infection, bile leakage, injury to internal organs or ducts that could result in her requiring a major operation, and hernia were all discussed with her. I talked to her about restrictions postprocedure. She appears to understand everything. She wishes to proceed. I plan to do a cholangiogram due to the ultrasound findings and the bilirubin in her urine. I have talked to her about the potential for a postoperative ERCP in the case of bile leak or stones within the common duct. She understood all of this.
[2019-10-04] MEDS: ENOXAPARIN 40 MG/0.4 ML SYRINGE SUBCUT (13:41)
[2019-10-04] MEDS: LACTATED RINGERS 1,000 ML 150 ML IV ×2 (13:47→20:51)
[2019-10-04 14:18] LABS: COVID19 -Nasal RAPID Negative (Negative)
--- NOTE | 2019-10-04 14:28 | PC.ADMIT ---
[facility] Admission Note: The patient,Phill Eller,33 y/o, was given written information regarding hospital policies, unit procedures and contact persons. Patient's smoking status: Former smoker. Vital Signs - 8 hr 10/04/19 10:25 10/04/19 10:26 10/04/19 11:47 Temperature 97.7 F Pulse Rate 58 L 58 L 71 Respiratory Rate 16 Blood Pressure 114/72 114/72 115/78 Pulse Oximetry 99 99 100 10/04/19 11:48 10/04/19 12:00 10/04/19 12:20 Temperature Pulse Rate 62 55 L 66 Respiratory Rate Blood Pressure 115/78 125/83 Pulse Oximetry 100 100 100 10/04/19 12:30 10/04/19 12:54 Temperature Pulse Rate 60 65 Respiratory Rate Blood Pressure 168/70 H Pulse Oximetry 100 100 PATIENT ALERT AND ORIENTED, CONVERSANT. NO S/SX'S OF DISTRESS. RATES EPIGASTRIC PAIN 1/10. ABD SOFT AND TENDER IN EPIGASTRIC AREA. URINE SENT TO LAB FOR POC. IVF INFUSING.
--- NOTE | 2019-10-04 16:17 | PM.PREOP ---
Pre-operative Note COVID-19 COVID-19 status: Negative Result date/Date tested (Pos, Neg/Pending): 10/04/19 Interval Note History & Physical reviewed/Exam performed by Physician: Yes Changes to H&P: No
--- NOTE | 2019-10-04 18:49 | PC.NURSE ---
TAKEN TO OR
[2019-10-04] MEDS: LACTATED RINGERS 1,000 ML 42 ML IV (19:00)
--- NOTE | 2019-10-04 19:04 | ED.ABDPAIN ---
HPI - Abdominal Pain General Chief Complaint: Abdominal Pain Stated Complaint: gallstones Time Seen by Provider: 10/04/19 10:15 Source: patient Mode of arrival: Ambulatory Limitations: no limitations History of Present Illness HPI narrative: 33F smoker with history of obesity and known gallstones presents with severe epigastric pain since yesterday. She has no appetiite. She has been NPO since last night. She denies fever or chills. MD complaint: abdominal pain Onset (ago): hour(s) Pain Consistency: constant Location: epigastric Severity: moderate Quality: cramping and stabbing Radiation: none Relieving factors: rest Exacerbating factors: movement Associated symptoms: nausea and vomiting Related Data Home Medications Medication Instructions Recorded Confirmed No Known Home Medications 10/04/19 10/04/19 Allergies Allergy/AdvReac Type Severity Reaction Status Date / Time diazepam [From VALIUM] AdvReac Unknown ITCHY Verified 10/04/19 12:22 Review of Systems Constitutional Constitutional: Denies fatigue, Denies frequent falls and Denies weakness Eyes Eyes: Denies loss of vision ENT Ears, Nose, Mouth, and Throat: Denies dizziness and Denies throat swelling Cardiovascular Cardiovascular: Denies chest pain, Denies irregular heart rhythm, Denies lightheadedness, Denies palpitations, Denies dyspnea, Denies dyspnea on exertion and Denies orthopnea Respiratory Respiratory: Denies cough, Denies dyspnea, Denies dyspnea on exertion and Denies wheezing Gastrointestinal Gastrointestinal: Denies abdominal pain, Denies change in bowel habits, Denies diarrhea, Denies nausea and Denies vomiting Musculoskeletal Musculoskeletal: Denies numbness Integumentary/Breasts Skin/Breast: Denies pruritus, Denies erythema, Denies rash and Denies wounds Neurologic Neurologic: Denies behavioral changes, Denies confusion, Denies dizziness, Denies frequent falls, Denies loss of vision, Denies numbness and Denies weakness Psychiatric Psychiatric: Denies behavioral changes and Denies confusion Endocrine Endocrine: Denies fatigue, Denies flushing and Denies palpitations Hematologic/Lymphatic Hematologic/Lymphatic: Denies easy bruising Allergic/Immunologic Allergic/Immunologic: Denies urticaria, Denies throat swelling and Denies wheezing Patient History Medical History (Updated 10/04/19 @ 19:17 by Jerel Henao DO) Knee fracture (Acute) Family History (Updated 07/09/20 @ 13:10 by Jose Geronimo MD) Grandfather No problems noted. Grandmother No problems noted. Social History household members: spouse and children Smoking Status: Former smoker substance use type: marijuana Smoking Status: Former smoker alcohol intake frequency: 0-2 drinks per day Substance Use Type: marijuana Exam Narrative Exam Narrative: GENERAL: [33] year old patient appears stated age. Well-nourished, well-developed patient, in moderate distress. HEAD: Atraumatic. Normocephalic. EYES: Pupils equal round and reactive. Extraocular motions intact. No scleral icterus. No injection or drainage. ENT: Nose without bleeding, purulent drainage. Throat without erythema, tonsillar hypertrophy or exudate. Airway patent. NECK: Trachea midline. Non tender CARDIOVASCULAR: Regular rate and rhythm without murmurs, gallops, or rubs. RESPIRATORY: Clear to auscultation. Breath sounds equal bilaterally. No wheezes, rales, or rhonchi. GASTROINTESTINAL: Abdomen soft, tender in the epigastric, nondistended. EXTREMITIES: No edema or joint tenderness. BACK: Nontender without deformity or crepitance. No flank tenderness. NEURO: AOx3. SKIN: No rash or erythema of visible areas Initial Vital Signs Initial Vital Signs: Vital Signs Pulse Rate 58 L 10/04/19 10:25 Blood Pressure 114/72 10/04/19 10:25 Pulse Oximetry 99 10/04/19 10:25 Course Orders Ordered: ED Orders 10/04/19 10:25 US abdomen limited Stat 10/04/19 10:31 Ictotest Urine Stat Urinalysis and Microscopic Stat 10/04/19 10:45 Complete Blood Count AUTO DIFF Stat Comprehensive Metabolic Panel Stat Lipase Stat Fentanyl (Sublimaze) 0 mcg IV Q5M PRN PRN Reason: Pain, Moderate (4-6) Lactated Ringer's (Lactated Ringers) 1,000 mls @ 150 mls/hr IV CONT KWABENA Last Admin: 10/04/19 13:47 Dose: 150 mls/hr Documented by: SONY Lactated Ringer's (Lactated Ringers) 1,000 mls @ 42 mls/hr IV CONT KWABENA Meperidine HCl (Demerol) 25 mg IV PACUNOW PRN PRN Reason: Moderate pain or shivering Metoclopramide HCl (Reglan) 10 mg IV NOW PRN PRN Reason: Nausea And Vomiting Ondansetron HCl (Zofran) 4 mg IV NOW PRN PRN Reason: Nausea And Vomiting Discontinued Medications Enoxaparin Sodium (Lovenox) 40 mg SUBCUT NOW ONE Stop: 10/04/19 13:25 Last Admin: 10/04/19 13:41 Dose: 40 mg Documented by: SONY Sodium Chloride (Normal Saline 0.9%) 1,000 mls @ 1,000 mls/hr IV BOLUS ONE Stop: 10/04/19 11:23 Last Infusion: 10/04/19 12:18 Dose: 0 mls/hr Documented by: Admin: 10/04/19 10:33 Dose: 1,000 mls/hr Documented by: SANJIV Cefotetan Disodium/Dextrose (Cefotan) 1 gm in 50 mls @ 100 mls/hr IV NOW ONE Stop: 10/04/19 13:04 Last Infusion: 10/04/19 16:10 Dose: 100 mls/hr Documented by: JEAN PAUL Admin: 10/04/19 12:49 Dose: 100 mls/hr Documented by: GLO Cefazolin Sodium/Dextrose (Ancef) 2 gm in 100 mls @ 200 mls/hr IV INTRA-OP ONE Stop: 10/04/19 14:04 Pantoprazole Sodium (Protonix) 40 mg IV NOW ONE Stop: 10/04/19 10:25 Last Admin: 10/04/19 10:33 Dose: 40 mg Documented by: SANJIV Consultations Consultation #1: call to quality control assistant surgery (Dr. Geronimo), requests patient remain NPO, swab for COVID, will take to the OR Vital Signs Vital signs: Vital Signs - 8 hr 10/04/19 11:47 10/04/19 11:48 10/04/19 12:00 Pulse Rate 71 62 55 L Blood Pressure 115/78 115/78 Pulse Oximetry 100 100 100 10/04/19 12:20 10/04/19 12:30 Pulse Rate 66 60 Blood Pressure 125/83 Pulse Oximetry 100 100 MDM - Abdominal Pain Lab Data Result diagrams: 10/04/19 10:45 10/04/19 10:45 Labs: Lab Results 10/04/19 10/04/19 10/04/19 Range/Units 10:31 10:45 10:45 WBC 9.9 (4.5-11.0) X10^3/uL RBC 4.87 (4.0-5.2) X10^6/uL Hgb 13.9 (12.0-16.0) g/dL Hct 40.5 (36-46) % MCV 83.2 (80-100) fL MCH 28.5 (26-34) PG MCHC 34.3 (30-36) % RDW 13.8 (11.6-14.8) % Plt Count 296 (150-400) X10^3/uL Neut % (Auto) 73.9 (50-75) % Lymph % (Auto) 19.1 L (25-40) % [place] % (Auto) 4.8 (3-14) % Eos % (Auto) 1.5 L (2-4) % Baso % (Auto) 0.7 (0-2) % Neut # (Auto) 7300 H (9664-6106) /uL Lymph # (Auto) 1900 (4747-3495) /uL [place] # (Auto) 500 (0-900) /uL Eos # (Auto) 100 (0-450) /uL Baso # (Auto) 100 (0-100) /uL Sodium 139 (137-145) mmol/L Potassium 3.9 (3.4-5.1) mmol/L Chloride 106 (98-107) mmol/L Carbon Dioxide 25 (22-32) mmol/L BUN 13 (7-17) mg/dL Creatinine 0.65 (0.52-1.04) mg/dL Estimated GFR > 60.0 (>60) mL/min BUN/Creatinine Ratio 20.0 (6-22) Glucose 138 H (70-100) mg/dL Calcium 9.3 (8.4-10.2) mg/dL Total Bilirubin 1.2 (0.2-1.3) mg/dL AST 76 H (14-36) IU/L ALT 32 (<35) IU/L Alkaline Phosphatase 144 H (38-126) U/L Total Protein 7.8 (6.3-8.2) g/dL Albumin 4.6 (3.5-5.0) g/dL Globulin 3.2 (1.7-4.1) g/dL Albumin/Globulin Ratio 1.4 (1.0-2.8) Lipase 122 (23-300) U/L Urine Color Yellow Urine Appearance Clear Urine pH 5.0 (4.5-8.0) Ur Specific [place] >=1.030 H (1.000-1.035) Urine Protein Trace H (Negative) Urine Glucose (UA) Negative (Negative) g/dL Urine Ketones Negative (NEGATIVE) Urine Occult Blood Trace-lysed (Negative) Urine Nitrate Negative (Negative) Urine Bilirubin 1+ H (NEGATIVE) Ur Bilirubin Confirm Positive H (Negative) Urine Urobilinogen 1.0 (0.2) E.U./dL Ur Leukocyte Esterase Negative (NEGATIVE) Urine RBC 1-5/hpf (0-5/HPF) Urine WBC 0-1/hpf (0-5/HPF) Ur Squamous Epith Cells 5-10 /hpf H (0-5/HPF) Urine Bacteria Moderate (10-30) H (None) Urine Mucus 1+ H (Negative) Ur Culture Indicated? Cult not indicated Point of care testing: Point of Care Testing Test Results Negative Urine Dip Bedside Urine Glucose Negative Bedside Urine Bilirubin + 1 Bedside Urine Ketone - Negative Urine Specific [place] 1.030 Bedside Urine Occult Blood - Negative Bedside Urine pH 6.0 Bedside Urine Protein +/- 15 Bedside Urine Urobilinogen +/- 1mg Bedside Urine Nitrite - Negative Bedside Urine Leukocytes + 70 Esterase Discharge Plan Departure Patient Disposition: Admitted as Observation Clinical Impression: Cholelithiasis Discharge Date/Time: 10/04/19 13:00 Admit Date/Time: 10/04/19 12:35 Admit Provider: Jose Geronimo
[2019-10-04] MEDS: CEFAZOLIN 2 GM/100 ML FROZ.PIGGY IV (19:15)
--- NOTE | 2019-10-04 19:37 | SUR.OPER ---
Supine on padded OR bed, head on pillow, safety belt at thigh. Both arms secured on padded arm boards @ <90 degrees abduction. Legs uncrossed. Padded footboard in place. Tape over blanket to secure lower legs.
[2019-10-04] MEDS: BUPIVACAINE 0.5% (PF) VIAL 30 ML INJ (20:00)
[2019-10-04] MEDS: IOPAMIDOL 15 ML VIAL INJ (20:01)
[2019-10-04] MEDS: SODIUM CHLORIDE 0.9% FLUSH 15 ML IV (20:02)
--- NOTE | 2019-10-04 21:53 | P.OP_ITS ---
Operative Date/Time/Diagnoses Date of procedure: 10/04/19 Time of procedure: 21:53 Pre-op diagnosis: Cholelithiasis cholecystitis Post-op diagnosis: other (Cholelithiasis with chronic cholecystitis and choledocholithiasis with obstruction of the common bile duct) Procedure & Clinicians Procedure: Laparoscopic cholecystectomy with intraoperative cholangiogram. Operation made more difficult by the patient's significant obesity Same procedure as scheduled: Yes Indications: Abdominal pain with a dilated common bowel duct and and gallstones within the gallbladder Surgeon: Jose Geronimo Click Yes if Unassisted: Yes Anesthesia Type: General Operative Notes Findings: Very wide cystic duct and the common duct very close to the neck of the gallbladder. The neck was somewhat twisted and low lying so that the cystic duct appeared to come anteriorly off the common bowel duct. Mildly dilated common bowel duct with no flow into the duodenum and an upside-down meniscus sign in the distal duct. There was some flow of contrast into the gallbladder itself during the cholangiogram. Closure Type: primary Specimen(s): other (Gallbladder) Prosthetic devices, grafts, tissues, transplants, or devices: None Applied: drain(s) (10 mm Jorge L-Marsh laid under the gallbladder bed with its and in the area of the common bowel duct) Estimated Blood Loss (mL): 40 Blood products transfused: none Procedure in detail: The patient was placed supine on the operating room table and underwent general endotracheal anesthesia. The patient was prepped and draped in the usual fashion. Local anesthetic was infiltrated near the umbilicus and linear incision made just above it and carried down through fascia into the peritoneal cavity. Stay sutures of 0 Vicryl were placed in the fascia. A 12 mm port was placed. The abdomen was insufflated. The patient was repositioned. Local anesthetic was infiltrated in 3 areas under the right costal margin and 3 small incisions made followed by placing 3 5 mm ports under direct laparoscopic camera vision internally. The gallbladder was grasped and elevated. The gallbladder was mostly encased in omentum which was taken down bluntly and with cautery. Dissection was begun near its end. Despite the patient's obesity the common bowel duct is readily seen. The gallbladder neck and and appeared to be twisted and sitting on top of it. This made the dissection quite tedious. I very carefully dissected out a cystic duct that appeared to be coming to off the common bowel duct anteriorly. Pulling the duct to the side I was able to dissected up onto the gallbladder and made it very clear that this was a structure going from the common duct to the gallbladder with no branches. Adjacent to it was a small artery and a lymph node over that artery. I dissected the lymph node off so I could see the artery. Four clips were placed on the artery. It was divided leaving 3 in the patient. A clip was placed at the junction of the neck of the gallbladder and the cystic duct. A small latricia was made intentionally in the cystic duct that I could insert a cholangiocatheter. A cholangiogram was performed that showed some flow into the gallbladder(the clip was not all the way a crossed the junction of the cystic duct and gallbladder). There was flow into the common bowel duct which was somewhat dilated but I could not identify any flow into the duodenum and at the distal end it appeared to be an upside-down meniscus sign. I placed 3 clips across the cystic duct being very careful not to narrow the common bowel duct. I then divided the cystic duct and clamped where the and was to prevent bile spillage. The gallbladder was then dissected from its bed in the liver. There was still some small amount of bilious material spilled but no stones. I encountered 1 small artery posteriorly which had 2 clips placed across it. The gallbladder was ultimately detached and removed through the umbilical port in a bag. The right upper quadrant irrigated and suctioned free of fluid. There was no ongoing bleeding. A drain was placed in the gallbladder fossa banding near the end of the cystic duct common duct junction. Was brought out through the lateral-most port and secured with 3 0 nylon. With no ongoing bleeding and no bilious drainage the ports were all removed.. the port sites were all irrigated. The stay sutures at the umbilicus were elevated. A 2 0 PDS suture was placed between them. The Vicryl and PDS sutures were then tied. The skin in all areas was closed with interrupted 4 0 Vicryl subcuticular stitches. S rodney-Strips and Mastisol were applied. Band-Aids were placed and the patient was awakened, extubated and taken to the recovery area in good condition. Complications: none Post-operative Condition: stable Disposition: PACU Plan for aftercare: Will be brought in for observation and will need transferred for an ERCP
--- NOTE | 2019-10-04 22:40 | SUR.PHASEI ---
Planned for bedside report to GISSELL Puente. PT is in stable condition upon transfer back to room 211. No N/V tolerating Ice chips
[2019-10-04] MEDS: LACTATED RINGERS 1,000 ML 125 ML IV (23:24)
[2019-10-04] MEDS: KETOROLAC 30 MG/ML VIAL IV (23:24)
[2019-10-05 00:50] VITALS: BP 151/74; PULSE 62; RESP 16; TEMP 36.2; O2SAT 100
[2019-10-05] MEDS: MORPHINE 4 MG/ML INJ IV ×4 (01:34→11:46)
[2019-10-05 01:50] VITALS: BP 143/82; PULSE 62; RESP 16; TEMP 36.6; O2SAT 98
--- NOTE | 2019-10-05 04:25 | PC.NURSE ---
VSS, Lung sounds clear, bowel tones hypoactive, pain seems to be controlled to 2/10 w/ Q2 morphine 4mg.
[2019-10-05 06:15] VITALS: BP 140/88; PULSE 61; RESP 16; TEMP 36.2; O2SAT 97
[2019-10-05] MEDS: LACTATED RINGERS 1,000 ML 125 ML IV (06:41)
[2019-10-05 06:56] LABS: Add Manual Diff / Slide Review NO; Basophils Absolute Auto 0 /uL (0-100); Basophils Percent Auto 0.2 % (0-2); Eosinophils Absolute Auto 0 /uL (0-450); Hematocrit 36.1 % (36-46); Hemoglobin 12.3 g/dL (12.0-16.0); Lymphocytes Absolute Auto 600 /uL (1100-4500); Lymphocytes Percent Auto 9.3 % (25-40); Mean Corpuscular HGB Conc 34.1 % (30-36); Mean Corpuscular Hemoglobin 28.5 PG (26-34); Mean Corpuscular Volume 83.6 fL (80-100); Monocytes Absolute Auto 100 /uL (0-900); Monocytes Percent Auto 1.4 % (3-14); Neutrophils Absolute Auto 6200 /uL (1500-7000); Neutrophils Percent Auto 89.1 % (50-75); Platelet Count 262 X10^3/uL (150-400); Red Blood Cell Count 4.31 X10^6/uL (4.0-5.2); Red Cell Distribution Width 13.7 % (11.6-14.8); White Blood Cell Count 6.9 X10^3/uL (4.5-11.0)
[2019-10-05 07:07] LABS: Alanine Aminotransferase 139 IU/L (<35); Albumin 3.8 g/dL (3.5-5.0); Albumin Globulin Ratio 1.4 (1.0-2.8); Alkaline Phosphatase 136 U/L (38-126); Aspartate Aminotransferase 135 IU/L (14-36); BUN Creatinine Ratio 17.6 (6-22); Bilirubin Total 0.7 mg/dL (0.2-1.3); Blood Urea Nitrogen 9 mg/dL (7-17); Calcium 8.5 mg/dL (8.4-10.2); Carbon Dioxide 22 mmol/L (22-32); Chloride 106 mmol/L (98-107); Estimated Glomerular Filt Rate > 60.0 mL/min (>60); Globulin 2.8 g/dL (1.7-4.1); Glucose 145 mg/dL (70-100); HEMOLYSIS < 15 (0-50); Potassium 4.1 mmol/L (3.4-5.1); Sodium 134 mmol/L (137-145); Total Protein 6.6 g/dL (6.3-8.2)
[2019-10-05 08:00] VITALS: BP 131/69; PULSE 52; RESP 16; TEMP 36.6; O2SAT 99
--- NOTE | 2019-10-05 10:26 | P.PN_ITS ---
Subjective Subjective Date Patient Seen: 10/05/19 Time Patient Seen: 10:26 Interval history: Patient feels well this morning she had a laparoscopic cholecystectomy last night. She has a retained common bile duct stone. I have explained this to the patient. She understands she needs to be transferred for an ERCP because we cannot do the procedure here. She understands. She is NPO and transfer arrangements are being made now. Patient may be discharged home a fter the ERCP at the discretion of the fur sewer. Exam Vital Signs (past 8 hours): - 10/05/19 06:15 10/05/19 08:00 Temperature 97.2 F L 97.8 F Pulse Rate 61 52 L Respiratory Rate 16 16 Blood Pressure 140/88 131/69 Pulse Oximetry 97 99 Oxygen Delivery Method Room Air Oxygen Flow Rate 0 Narrative Exam Narrative: Patient is asymptomatic this morning I do not see scleral icterus. Lungs are clear Heart regular rhythm no murmur Abdomen reveals normal amount of trocar site tenderness. Objective Labs Result Diagrams: 10/05/19 06:48 10/05/19 06:48 Labs: Laboratory Results - last 24 hr 10/04/19 10/04/19 10/04/19 10:31 10:45 10:45 WBC 9.9 RBC 4.87 Hgb 13.9 Hct 40.5 MCV 83.2 MCH 28.5 MCHC 34.3 RDW 13.8 Plt Count 296 Neut % (Auto) 73.9 Lymph % (Auto) 19.1 L [place] % (Auto) 4.8 Eos % (Auto) 1.5 L Baso % (Auto) 0.7 Neut # (Auto) 7300 H Lymph # (Auto) 1900 [place] # (Auto) 500 Eos # (Auto) 100 Baso # (Auto) 100 Sodium 139 Potassium 3.9 Chloride 106 Carbon Dioxide 25 BUN 13 Creatinine 0.65 Estimated GFR > 60.0 BUN/Creatinine Ratio 20.0 Glucose 138 H Calcium 9.3 Total Bilirubin 1.2 AST 76 H ALT 32 Alkaline Phosphatase 144 H Total Protein 7.8 Albumin 4.6 Globulin 3.2 Albumin/Globulin Ratio 1.4 Lipase 122 Urine Color Yellow Urine Appearance Clear Urine pH 5.0 Ur Specific [place] >=1.030 H Urine Protein Trace H Urine Glucose (UA) Negative Urine Ketones Negative Urine Occult Blood Trace-lysed Urine Nitrate Negative Urine Bilirubin 1+ H Ur Bilirubin Confirm Positive H Urine Urobilinogen 1.0 Ur Leukocyte Esterase Negative Urine RBC 1-5/hpf Urine WBC 0-1/hpf Ur Squamous Epith Cells 5-10 /hpf H Urine Bacteria Moderate (10-30) H Urine Mucus 1+ H Ur Culture Indicated? Cult not indicated COVID-19 PCR 10/04/19 10/05/19 10/05/19 12:57 06:48 06:48 WBC 6.9 RBC 4.31 Hgb 12.3 Hct 36.1 MCV 83.6 MCH 28.5 MCHC 34.1 RDW 13.7 Plt Count 262 Neut % (Auto) 89.1 H Lymph % (Auto) 9.3 L [place] % (Auto) 1.4 L Eos % (Auto) 0.0 L Baso % (Auto) 0.2 Neut # (Auto) 6200 Lymph # (Auto) 600 L [place] # (Auto) 100 Eos # (Auto) 0 Baso # (Auto) 0 Sodium 134 L Potassium 4.1 Chloride 106 Carbon Dioxide 22 BUN 9 Creatinine 0.51 L Estimated GFR > 60.0 BUN/Creatinine Ratio 17.6 Glucose 145 H Calcium 8.5 Total Bilirubin 0.7 AST 135 H ALT 139 H Alkaline Phosphatase 136 H Total Protein 6.6 Albumin 3.8 Globulin 2.8 Albumin/Globulin Ratio 1.4 Lipase Urine Color Urine Appearance Urine pH Ur Specific [place] Urine Protein Urine Glucose (UA) Urine Ketones Urine Occult Blood Urine Nitrate Urine Bilirubin Ur Bilirubin Confirm Urine Urobilinogen Ur Leukocyte Esterase Urine RBC Urine WBC Ur Squamous Epith Cells Urine Bacteria Urine Mucus Ur Culture Indicated? COVID-19 PCR Negative Assessment & Plan Assessment & Plan narrative: Patient is doing very well post laparoscopic cholecystectomy. Unfortunately she has a retained common bile duct stone. She is being transferred for ERCP today. Quality VTE Deep Vein Thrombosis/Pulmonary Embolism Present on Admission: No
[2019-10-05 12:00] VITALS: BP 124/63; PULSE 54; RESP 15; TEMP 36.8; O2SAT 99
--- NOTE | 2019-10-05 13:13 | PC.NURSE ---
Transfer to [facility] ordered. Report given to Renetta BORRERO on [facility]. [phone]. Pt off unit at 1310 with transport team. Pt left in stable condition with all personal belongings. IV left in place.
== END 2019-10-05 13:10 | disposition short-term general hospital (02) ==
LOC: ED 10:21 → AC 12:37
PROVIDERS: Admitting Provider Specialist; Emergency Provider Emergency Medicine; Referring Provider Emergency Medicine; Visit Provider Specialist
PROC: 0FT44ZZ Resection of Gallbladder, Percutaneous Endoscopic Approach (ICD-10-PCS; CPT 47562; principal; 2019-10-04 18:30)
DX: K80.65 Calculus of gallbladder and bile duct with chronic cholecystitis with obstruction (principal); R10.9 Unspecified abdominal pain; E66.01 Morbid (severe) obesity due to excess calories; Z68.42 Body mass index [BMI] 45.0-49.9, adult
CPT/HCPCS: 47563; 36415; 74300; 76705; 80053; 81001; 81003; 81025; 82962; 83690; 85025; 87635; 96361; 96365; 96366; 96372; 96375; 96376; 99219; 99284; G0378; C9113; J0330; J0690; J1100; J1650; J1885; J2270; J2405; J2704; J2765; J3010

== ENCOUNTER → 2020-01-11 14:32 | Outpatient (CLI) | payer OTHER, MEDICAID, SELFPAY ==
[2019-10-04 13:49] VITALS: BMI 48.0
--- NOTE | 2020-01-11 | DI.RAD.S_ITS ---
PROCEDURE: XR ABDOMEN 1V INDICATIONS: Chronic Diarrhea TECHNIQUE: One view of the abdomen acquired. COMPARISON: [facility], , US ABDOMEN LIMITED, 10/04/2019, 10:55. [facility], , ABDOMEN 1 VIEW, 11/17/2007, 13:12. FINDINGS: Surgical changes and devices: None. Bowel: Bowel gas pattern is normal. Soft tissues: No suspicious abdominal calcifications. Visualized solid organ contours appear normal in size. Bones: No suspicious bony lesions. A healing fracture is seen in the right 12th rib. IMPRESSION: Normal bowel gas pattern. Dictated by: Misael HOWARD Interpreted: Kwaku Michaels MD on 01/11/2020 at 15:43 Approved by: Kwaku Michaels M.D. on 01/11/2020 at 16:42
[2020-01-11 15:53] LABS: Add Manual Diff / Slide Review NO; Basophils Absolute Auto 0 /uL (0-100); Basophils Percent Auto 0.7 % (0-2); Eosinophils Absolute Auto 200 /uL (0-450); Eosinophils Percent Auto 2.6 % (2-4); Hematocrit 40.7 % (36-46); Hemoglobin 13.9 g/dL (12.0-16.0); Lymphocytes Absolute Auto 1800 /uL (1100-4500); Lymphocytes Percent Auto 28.4 % (25-40); Mean Corpuscular HGB Conc 34.2 % (30-36); Monocytes Absolute Auto 300 /uL (0-900); Monocytes Percent Auto 4.8 % (3-14); Neutrophils Absolute Auto 4000 /uL (1500-7000); Neutrophils Percent Auto 63.5 % (50-75); Platelet Count 276 X10^3/uL (150-400); Red Blood Cell Count 4.97 X10^6/uL (4.0-5.2); Red Cell Distribution Width 13.5 % (11.6-14.8); White Blood Cell Count 6.2 X10^3/uL (4.5-11.0)
[2020-01-11 16:52] LABS: Alanine Aminotransferase 33 IU/L (<35); Albumin 4.5 g/dL (3.5-5.0); Albumin Globulin Ratio 1.6 (1.0-2.8); Alkaline Phosphatase 120 U/L (38-126); Aspartate Aminotransferase 23 IU/L (14-36); BUN Creatinine Ratio 16.4 (6-22); Bilirubin Total 0.4 mg/dL (0.2-1.3); Blood Urea Nitrogen 10 mg/dL (7-17); Carbon Dioxide 28 mmol/L (22-32); Chloride 105 mmol/L (98-107); Estimated Glomerular Filt Rate > 60.0 mL/min (>60); Globulin 2.9 g/dL (1.7-4.1); Glucose 99 mg/dL (70-100); HEMOLYSIS < 15 (0-50); Potassium 4.3 mmol/L (3.4-5.1); Sodium 139 mmol/L (137-145); Total Protein 7.4 g/dL (6.3-8.2)
[2020-01-11 17:06] LABS: Free T4, Direct Thyroxine 1.21 ng/dL (0.78-2.19); T4 Total Thyroxine 8.98 ug/dL (5.5-11.0)
[2020-01-14 13:06] LABS: Fecal Immunochemical Test Negative (Negative)
== END ==
PROVIDERS: Referring Provider Family Medicine; Visit Provider Family Medicine
DX: K52.9 Noninfective gastroenteritis and colitis, unspecified (principal)
CPT/HCPCS: 36415; 74018; 80053; 82274; 83631; 84436; 84439; 84443; 85025; 86140; 87329

== ENCOUNTER 2021-12-04 19:29 | Emergency (ER) | payer OTHER, MEDICAID, SELFPAY ==
[2019-10-04 13:49] VITALS: BMI 48.0
[2021-12-04 20:31] VITALS: BP 155/89; PULSE 79; RESP 17; TEMP 36.4; O2SAT 100; BMI 48.2
[2021-12-04 22:31] LABS: Amorphous Sediment Urine 1+; Bacteria Urine Occasional (0-1); RBC Urine 1-5/HPF (0-5/HPF); Squamous Epithelial Cell Urine 0-1 /HPF (0-5/HPF); WBC Urine 5-10/HPF (0-5/HPF)
--- NOTE | 2021-12-04 22:51 | ED.GENADULT ---
HPI - General Adult General Chief complaint: Urogenital-Female Stated complaint: UTI Time Seen by Provider: 12/04/21 22:28 Source: patient Mode of arrival: Ambulatory Limitations: no limitations History of Present Illness HPI narrative: 35-year-old female who is here for evaluation approximately 3 weeks of urinary frequency and hesitancy. No fevers. She has had a urinary tract infection in the past but it was ?sometime ago no fevers. No back pain. Also having some pelvic discomfort. Related Data Previous Rx's Medication Instructions Recorded nitrofurantoin 100 mg PO Q12H 5 days #10 caps 12/04/21 monohydrate/macrocrystals 100 mg capsule (Macrobid) Allergies Allergy/AdvReac Type Severity Reaction Status Date / Time diazepam [From VALIUM] AdvReac Unknown ITCHY Verified 10/31/19 13:12 Review of Systems Constitutional Constitutional: Denies fever(s) Gastrointestinal Gastrointestinal: Reports system reviewed and no additional complaints, except as documented Genitourinary Genitourinary: Reports system reviewed and no additional complaints, except as documented Integumentary/Breasts Skin/Breast: Reports system reviewed and no additional complaints, except as documented Patient History Medical History Knee fracture Family History Grandfather No problems noted. Grandmother No problems noted. Social History household members: spouse and children Smoking Status: Former smoker substance use type: marijuana Smoking Status: Former smoker alcohol intake frequency: 0-2 drinks per day Substance Use Type: marijuana Exam Initial Vital Signs Initial Vital Signs: Vital Signs Temperature 97.6 F 12/04/21 20:31 Pulse Rate 79 12/04/21 20:31 Respiratory Rate 17 12/04/21 20:31 Blood Pressure 155/89 H 12/04/21 20:31 Pulse Oximetry 100 12/04/21 20:31 Oxygen Delivery Method 12/04/21 20:31 HENMT Head: normal to inspection Resp Effort & Inspection: normal respiratory effort Cardio Rate: regular rate GI Inspection: normal to inspection Palpation: soft and No tender Skin General: no rashes or lesions noted Course Orders Ordered: ED Orders 12/04/21 20:50 Urine Microscopic Stat 12/04/21 20:58 Urine Culture Stat Discontinued Medications Nitrofurantoin Macrocrystals (Nitrofurantoin Er 100 Mg Capsule) 100 mg PO NOW ONE Stop: 12/04/21 22:53 Last Admin: 12/04/21 22:58 Dose: 100 mg Documented By: CORINA Vital Signs Vital signs: Vital Signs - 8 hr 12/04/21 20:31 Temperature 97.6 F Pulse Rate 79 Respiratory Rate 17 Blood Pressure 155/89 H Pulse Oximetry 100 Oxygen Delivery Method Room Air Medical Decision Making Lab Data Lab results reviewed: Yes I reviewed the patient's lab results. Labs: Lab Results 12/04/21 Range/Units 20:50 Urine RBC 1-5/hpf (0-5/HPF) Urine WBC 5-10/hpf H (0-5/HPF) Ur Squamous Epith Cells 0-1 /hpf (0-5/HPF) Amorphous Sediment 1+ Urine Bacteria Occasional (0-1) (None) Ur Culture Indicated? Culture not indicate Point of Care Testing Test Results Negative Urine Dip Bedside Urine Glucose Negative Bedside Urine Bilirubin - Negative Bedside Urine Ketone - Negative Urine Specific [place] 1.030 Bedside Urine Occult Blood +/- Bedside Urine pH 6.0 Bedside Urine Protein +/- 15 Bedside Urine Urobilinogen - Negative Bedside Urine Nitrite - Negative Bedside Urine Leukocytes + 70 Esterase Point of care testing: Point of Care Testing Test Results Negative Urine Dip Bedside Urine Glucose Negative Bedside Urine Bilirubin - Negative Bedside Urine Ketone - Negative Urine Specific [place] 1.030 Bedside Urine Occult Blood +/- Bedside Urine pH 6.0 Bedside Urine Protein +/- 15 Bedside Urine Urobilinogen - Negative Bedside Urine Nitrite - Negative Bedside Urine Leukocytes + 70 Esterase MDM Narrative Medical decision making narrative: Urinalysis today given her symptoms is consistent with urinary tract infection. Urine culture was pending and she was informed of this and will contact her if we need to change any antibiotics. She was given dose of Macrobid here in the ER and was sent home with a prescription for this. Was electronically transmitted to the pharmacy of her choice. Low suspicion for pyelonephritis. Patient was given return precautions. She expressed understanding and agreement. Discharge Plan Departure Patient Disposition: Home Clinical Impression: Urinary tract infection Instructions: DI for Urinary Tract Infection (UTI) Activity Restrictions/Additional Instructions: A urine culture was pending at the time of your discharge and we will contact you if we need to change any antibiotics. A prescription was [facility] to [facility]. Please pick it up tomorrow and start taking as directed. Return to the emergency department for any new or worsening symptoms. Prescriptions: New nitrofurantoin monohyd/m-cryst [Macrobid] 100 mg capsule 100 mg PO Q12H 5 Days Qty: 10 0RF Rx Instructions: must administer with a meal/food Referrals: Miscellaneous,Doctor, MD [Primary Care Provider] - Visit Report Forms: Patient Portal/API
[2021-12-04] MEDS: NITROFURANTOIN ER 100 MG CAPSULE PO (22:58)
== END 2021-12-04 23:05 | disposition home or self-care (01) ==
PROVIDERS: Emergency Provider Emergency Medicine
DX: N39.0 Urinary tract infection, site not specified (principal); R10.2 Pelvic and perineal pain
CPT/HCPCS: 81003; 81015; 81025; 87077; 87086; 87147; 99283